=== PATIENT | female | born 1995 | race Two or more races ===

== ENCOUNTER 2020-01-12 09:31 | Emergency (ER) | payer MEDICAID ==
[~2020-01-12] VITALS: Ht 167.6 cm; Wt 52.6 kg
--- NOTE | 2020-01-12 09:45 | NUR ---
BIB [facility] C/O SYNCOPAL EPISODE WHILE WALKING. 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
[2020-01-12] MEDS ORDERED: ACETAMINOPHEN ES 500 MG TABLET PO ONE (10:00)
[2020-01-12] MEDS ORDERED: ACETAMINOPHEN ES 500 MG TABLET ONE (10:07)
[2020-01-12 11:30] VITALS: BP 123/65
--- NOTE | 2020-01-12 11:37 | NUR ---
IV removed. Catheter intact and site benign. Pressure and 4x4 applied to site. No bleeding noted.Patient discharged to home in stable condition. Written and verbal after care instructions given. Patient verbalizes understanding of instruction.
== END 2020-01-12 11:38 | disposition home or self-care (01) ==
LOC: ER 09:41
DX: S00.03XA Contusion of scalp, initial encounter (principal); R55 Syncope and collapse; R42 Dizziness and giddiness; W18.39XA Other fall on same level, initial encounter; Y93.89 Activity, other specified; Y92.89 Other specified places as the place of occurrence of the external cause; Y99.8 Other external cause status
CPT/HCPCS: 70450-TC; 84703-TC